=== PATIENT | male | born 1965 | race Caucasian/White ===

== ENCOUNTER 2017-05-31 09:25 | Emergency (ER) | payer SELFPAY ==
[~2017-05-31] VITALS: Ht 182.9 cm; Wt 122.0 kg
[~2017-05-31 09:25] MED LIST: PHEN100 PO
[2017-05-31 09:30] VITALS: BP 146/86; PULSE 94; RESP 16; TEMP 98.8; O2SAT 97
[2017-05-31] MEDS ORDERED: ATOR10TA15 PO (09:43)
[2017-05-31] MEDS ORDERED: IPRA0.02 NEB ×2 (09:43→12:30)
[2017-05-31] MEDS ORDERED: SYMB160A INH ×2 (09:43→12:29)
[2017-05-31] MEDS ORDERED: CYCL1TAB29 PO (09:43)
[2017-05-31] MEDS ORDERED: VENTAER INH ×2 (09:43→12:29)
[2017-05-31] MEDS ORDERED: ALBU.5I NEB (09:43)
[2017-05-31] MEDS ORDERED: DILA100C PO ×2 (09:43→12:29)
[2017-05-31] MEDS ORDERED: PHENYTOIN SODIUM 100 MG CAP PO SCH (09:45)
[2017-05-31] MEDS ORDERED: SODIUM CHLORIDE 0.9% FLUSH 10 ML FLUSH IVF PRN (09:45)
[2017-05-31] MEDS ORDERED: ASPIRIN 325 MG TAB PO ONE (09:45)
[2017-05-31 09:48] VITALS: O2SAT 97
--- NOTE | 2017-05-31 09:48 | PD ---
HPI Chief Complaint: Chest Pain Time Seen by Provider: 09:34 Travel History International Travel<30 days: No Contact w/Intl Traveler<30days: No Traveled to known affect area: No History of Present Illness HPI This patient complains of chest tightness. Duration is 3 days. Severity is moderate. Location is left upper chest. Sometimes radiates down the left arm. Also occasionally in the right upper chest. No injury. Not reproducible with deep breath or movement. He denies documented coronary artery disease. He says that he had stress testing at least 10 years ago. Symptoms have no alleviating factors. Symptoms are nonexertional. PFSH Past Medical History Asthma: No COPD: No Diabetes: No Diminished Hearing: No Immunizations Current: No Seizures: Yes Social History Alcohol Use: Yes (occ) Tobacco Use: No Substance Use: No Allergies-Medications (Allergen,Severity, Reaction): Coded Allergies: No Known Allergies (Verified , 05/27/15) Reported Meds & Prescriptions Reported Meds & Active Scripts Active Reported Atorvastatin (Atorvastatin Calcium) 10 Mg Tab 10 Mg PO HS Symbicort Inh (Budesonide/Formoterol Fumarate) 160-4.5 Mcg/Act Aero 2 Puff INH Q12HR Ipratropium Neb (Ipratropium [place]) 0.5 Mg/2.5 Ml Amp 0.5 Mg NEB Q4HR NEB PRN Albuterol Neb (Albuterol Sulfate) 2.5 Mg/0.5 Ml Neb 2.5 Mg NEB Q4HR NEB PRN Note: The Albuterol Sulfate Inhalation Solution is concentrated and must be diluted. Read complete instructions carefully before using. Flexeril (Cyclobenzaprine HCl) 10 Mg Tab 10 Mg PO TID Ventolin Hfa 18 GM Inh (Albuterol Sulfate) 90 Mcg/Act Aer 2 Puff INH Q4-6H PRN Dilantin (Phenytoin Extended) 100 Mg Cap 300 Mg PO BID Review of Systems General / Constitutional: No: Fever Eyes: No: Visual changes HENT: No: Headaches Cardiovascular: Positive: Chest Pain or Discomfort Respiratory: No: Shortness of Breath Gastrointestinal: No: Abdominal Pain Genitourinary: No: Dysuria Musculoskeletal: No: Pain Skin: No Rash Neurologic: Positive: Seizures, No: Weakness Psychiatric: No: Depression Endocrine: No: Polydipsia Hematologic/Lymphatic: No: Easy Bruising Physical Exam Narrative GENERAL: Well-nourished, well-developed patient in no apparent distress. SKIN: Focused skin assessment reveals no rash and nodules. Skin is Warm and dry. HEAD: Atraumatic. Normocephalic. EYES: Pupils equal and round. No scleral icterus. No injection or drainage. ENT: No nasal bleeding or discharge. Mucous membranes pink and moist. NECK: Trachea midline. No JVD. CARDIOVASCULAR: Regular rate and rhythm. No murmur appreciated. RESPIRATORY: No accessory muscle use. Clear to auscultation. Breath sounds equal bilaterally. GASTROINTESTINAL: Abdomen soft, non-tender, nondistended. Hepatic and splenic margins not palpable. MUSCULOSKELETAL: No obvious deformities. No clubbing. No cyanosis. No edema. NEUROLOGICAL: Awake and alert. No obvious cranial nerve deficits. Motor grossly within normal limits. Normal speech. PSYCHIATRIC: Appropriate mood and affect; insight and judgment normal. Data Data Last Documented VS Vital Signs Date Time Temp Pulse Resp B/P (MAP) Pulse Ox O2 Delivery O2 Flow Rate FiO2 05/31/17 09:48 97 05/31/17 09:30 98.8 94 16 146/86 (106) 05/31/17 09:30 Room Air Orders Orders Electrocardiogram (05/31/17 09:43) Basic Metabolic Panel (Bmp) (05/31/17 09:43) Ckmb (Isoenzyme) Profile (05/31/17 09:43) Complete Blood Count With Diff (05/31/17 09:43) Prothrombin Time / Inr (Pt) (05/31/17 09:43) Act Partial Throm Time (Ptt) (05/31/17 09:43) Troponin I (05/31/17 09:43) Chest, Single Ap (05/31/17 09:43) Ecg Monitoring (05/31/17 09:43) Iv Access Insert/Monitor (05/31/17 09:43) Oximetry (05/31/17 09:43) Aspirin (Aspirin) (05/31/17 09:45) Sodium Chloride 0.9% Flush (Ns Flush) (05/31/17 09:45) Phenytoin (Dilantin) (05/31/17 09:45) CKMB (05/31/17 10:05) CKMB% (05/31/17 10:05) Labs Laboratory Tests Test 05/31/17 10:05 White Blood Count 5.9 TH/MM3 Red Blood Count 4.60 MIL/MM3 Hemoglobin 13.6 GM/DL Hematocrit 39.6 % Mean Corpuscular Volume 86.1 FL Mean Corpuscular Hemoglobin 29.6 PG Mean Corpuscular Hemoglobin Concent 34.4 % Red Cell Distribution Width 12.5 % Platelet Count 278 TH/MM3 Mean Platelet Volume 7.2 FL Neutrophils (%) (Auto) 51.8 % Lymphocytes (%) (Auto) 31.3 % Monocytes (%) (Auto) 10.7 % Eosinophils (%) (Auto) 5.3 % Basophils (%) (Auto) 0.9 % Neutrophils # (Auto) 3.0 TH/MM3 Lymphocytes # (Auto) 1.9 TH/MM3 Monocytes # (Auto) 0.6 TH/MM3 Eosinophils # (Auto) 0.3 TH/MM3 Basophils # (Auto) 0.1 TH/MM3 CBC Comment DIFF FINAL Differential Comment Prothrombin Time 10.4 SEC Prothromb Time International Ratio 0.9 RATIO Activated Partial Thromboplast Time 24.5 SEC Blood Urea Nitrogen 18 MG/DL Creatinine 1.10 MG/DL Random Glucose 124 MG/DL Calcium Level 8.7 MG/DL Sodium Level 139 MEQ/L Potassium Level 4.0 MEQ/L Chloride Level 106 MEQ/L Carbon Dioxide Level 25.9 MEQ/L Anion Gap 7 MEQ/L Estimat Glomerular Filtration Rate 70 ML/MIN Total Creatine Kinase 202 U/L Creatine Kinase MB 1.2 NG/ML Troponin I LESS THAN 0.02 NG/ML MDM Medical Decision Making Medical Screen Exam Complete: Yes Emergency Medical Condition: Yes Medical Record Reviewed: Yes Differential Diagnosis Differential diagnosis includes TN, angina, pericarditis, pleurisy, GERD, anxiety. Narrative Course I have reviewed the patient's electronic medical record. Patient had a myocardial perfusion scan here in 2003 IV placed I reviewed the EKG shows sinus rhythm without ST elevation or ectopy I reviewed the chest x-ray is normal Extended cardiac monitoring shows sinus rhythm without ectopy CBC is normal Metabolic profile shows normal creatinine CK is normal Troponin is normal Coagulation studies are normal Gave him an aspirin. He has been out of his Dilantin for 4 days so I gave him 600 mg Dilantin here. Has not had any seizure activity in the last month Patient's chest pain workup here is negative but I recommended 23 hour observation in the chest pain center to rule out cardiac cause of his symptoms. He thought about it but is going to decline my recommendation and sign out AGAINST MEDICAL ADVICE. I've advised him to return if he worsens or changes his mind. He says that he doesn't have insurance and can't afford it. I still advised him to stay and get checked out medically. Diagnosis Primary Impression: Chest pain in adult Disposition: 07 AGAINST MEDICAL ADVICE Sanjay Barry MD May 31, 2017 09:48
--- NOTE | 2017-05-31 10:00 | RADRPT ---
EXAM DATE/TIME: 05/31/2017 09:51 [facility] COMPARISON: No previous studies available for comparison. INDICATIONS : Chest pain, short of breath, dizziness. MEDICAL HISTORY : Chronic obstructive pulmonary disease. SURGICAL HISTORY : None. ENCOUNTER: Initial ACUITY: 1 week PAIN SCORE: 1/10 LOCATION: Bilateral chest FINDINGS: A single view of the chest demonstrates the lungs to be symmetrically aerated without evidence of mas s, infiltrate or effusion. The cardiomediastinal contours are unremarkable. Osseous structures are intact. CONCLUSION: No acute disease. Jadon Ortiz MD on May 31, 2017 at 9:58 Board Certified Radiologist. This report was verified electronically.
[2017-05-31 10:18] LABS: BASOPHIL # 0.1 TH/MM3 (0-0.2); BASOPHIL % 0.9 % (0.0-2.0); EOSINOPHIL # 0.3 TH/MM3 (0-0.4); EOSINOPHIL % 5.3 % (0.0-4.0); HEMATOCRIT 39.6 % (39.0-51.0); HEMO FLAGS DIFF FINAL; LYMPH % 31.3 % (9.0-44.0); LYMPHOCYTE # 1.9 TH/MM3 (1.0-4.8); MEAN CELL VOLUME 86.1 FL (80.0-100.0); MEAN CORPUSCULAR HEMOGLOBIN 29.6 PG (27.0-34.0); MEAN CORPUSCULAR HGB CONC 34.4 % (32.0-36.0); MONO % 10.7 % (0.0-8.0); NEUT % 51.8 % (16.0-70.0); PLATELET COUNT 278 TH/MM3 (150-450); RED CELL DISTRIBUTION WIDTH 12.5 % (11.6-17.2); WHITE BLOOD COUNT 5.9 TH/MM3 (4.0-11.0)
[2017-05-31 10:26] LABS: CHLORIDE 106 MEQ/L (98-107); SODIUM (NA) 139 MEQ/L (136-145)
[2017-05-31 10:30] LABS: ANION GAP 7 MEQ/L (5-15); BICARBONATE 25.9 MEQ/L (21.0-32.0); BLOOD UREA NITROGEN 18 MG/DL (7-18)
[2017-05-31 10:31] LABS: APTT (PATIENT) 24.5 SEC (24.3-30.1); INTERNATIONAL NORMALIZED RATIO 0.9 RATIO; PROTHROMBIN TIME - PATIENT 10.4 SEC (9.8-11.6)
[2017-05-31 10:33] LABS: GLOMERULAR FILTRATION RATE 70 ML/MIN (>89)
[2017-05-31 10:36] LABS: CREATINE KINASE 202 U/L (39-308)
[2017-05-31 10:49] LABS: CKMB 1.2 NG/ML (0.5-3.6)
[2017-05-31] MEDS ORDERED: ALBU0.08 NEB (12:30)
[2017-05-31 12:35] VITALS: BP 135/81; PULSE 83; RESP 16; O2SAT 96
--- NOTE | 2017-05-31 13:46 | EKG ---
Date Performed: 05/31/2017 Time Performed: 09:32:06 PTAGE: 52 years EKG: Sinus rhythm NORMAL ECG PREVIOUS TRACING : 08/20/2004 22.13 No significant change from previous tracing noted. DOCTOR: Jb Handley Interpretating Date/Time 05/31/2017 13:44:43
== END 2017-05-31 12:42 | disposition left against medical advice (07) ==
LOC: PHED 09:25
DX: R07.9 Chest pain, unspecified (principal)
CPT/HCPCS: 71010; 80048; 82550; 82552; 84484; 85025; 85610; 85730; 93005; 99285